=== PATIENT | female | born 1970 | race Caucasian/White ===

== ENCOUNTER 2022-08-02 09:52 | Emergency (ER) | payer MEDICAID ==
[~2022-08-02] VITALS: Ht 152.4 cm; Wt 54.0 kg
[~2022-08-02 09:52] MED LIST: CYCL-120 PO
[2022-08-02 10:28] LABS: BASOPHILS % (AUTO) 0.5 % (0-1); EOSINOPHILS # (AUTO) 0.1 X10'3 (0-0.9); EOSINOPHILS % (AUTO) 1.3 % (0-6); HEMOGLOBIN 15.6 g/dl (12.0-16.0); LYMPHOCYTES # (AUTO) 1.7 X10'3 (1.1-4.8); MEAN CORPUSCULAR HEMOGLOBIN 31.2 PG (27.0-31.0); MEAN CORPUSCULAR HGB CONC 33.9 g/dL (33.0-36.5); MEAN CORPUSCULAR VOLUME 92.1 FL (78-98); MEAN PLATELET VOLUME 7.7 FL (7.4-10.4); MONOCYTES # (AUTO) 0.4 X10'3 (0-0.9); MONOCYTES % (AUTO) 6.3 % (2-12); NEUTROPHILS # (AUTO) 4.1 X10'3 (1.8-7.7); NEUTROPHILS % (AUTO) 64.9 % (42-75); PLATELET COUNT 306 X10'3 (140-440); RED BLOOD COUNT 4.99 X10'6 (4.20-5.60); RED CELL DISTRIBUTION WIDTH 12.3 % (11.5-14.5); WHITE BLOOD COUNT 6.3 X10'3 (4.5-11.0)
[2022-08-02 10:39] LABS: ALANINE AMINOTRANSFERASE 26 U/L (12-78); ALBUMIN 4.5 G/DL (3.4-5.0); ALBUMIN/GLOBULIN RATIO 1.3 (1.1-1.5); ALKALINE PHOSPHATASE 115 IU/L (46-116); ANION GAP 6 (8-16); ASPARTATE AMINO TRANSFERASE 21 U/L (10-37); BILIRUBIN,TOTAL 0.7 MG/DL (0.1-1.0); BLOOD UREA NITROGEN 8 MG/DL (7-18); BUN/CREATININE RATIO 9.9 (6.6-38.0); CHLORIDE 102 MMOL/L (99-107); CREATININE 0.81 MG/DL (0.40-0.90); GLUCOSE 117 MG/DL (70-104); POTASSIUM 3.7 MMOL/L (3.5-5.1); SODIUM 139 MMOL/L (135-145); TOTAL CARBON DIOXIDE 31.2 MMOL/L (24-32); TOTAL PROTEIN 8.1 G/DL (6.4-8.2); eGFR 75 ML/MIN
[2022-08-02 10:52] LABS: CALCIUM 9.5 MG/DL (8.5-10.1)
[2022-08-02 10:53] LABS: LIPASE 104 U/L (73-393)
[2022-08-02] MEDS ORDERED: RABE20TA31 PO (12:24)
[2022-08-02] MEDS ORDERED: SUCR1TAB PO (12:24)
[2022-08-02 12:57] VITALS: BP 132/78
== END 2022-08-02 12:59 | disposition home or self-care (01) ==
LOC: ER 09:53
DX: R10.13 Epigastric pain (principal); R11.2 Nausea with vomiting, unspecified; F17.200 Nicotine dependence, unspecified, uncomplicated; Z98.51 Tubal ligation status; Z72.89 Other problems related to lifestyle; Z88.0 Allergy status to penicillin; Z88.2 Allergy status to sulfonamides; Z88.8 Allergy status to other drugs, medicaments and biological substances; Z79.899 Other long term (current) drug therapy
CPT/HCPCS: 36415; 74022; 76700; 80053; 83690; 85025; 93005; 99285

== ENCOUNTER 2022-12-26 12:18 | Emergency (ER) | payer MEDICAID ==
[~2022-12-26] VITALS: Ht 154.9 cm; Wt 60.0 kg
[~2022-12-26 12:18] MED LIST changes: +RABE20TA31 PO; +SUCR1TAB PO
[2022-12-26] MEDS ORDERED: meclizine 12.5mg tablet PO ONE (14:05)
[2022-12-26] MEDS ORDERED: diazepam 5mg tablet PO ONE (14:05)
[2022-12-26] MEDS ORDERED: MECL-159 PO (14:10)
[2022-12-26] MEDS ORDERED: DIAZ5TAB22 PO (14:10)
[2022-12-26 14:18] VITALS: BP 109/69
== END 2022-12-26 14:19 | disposition home or self-care (01) ==
LOC: ER 12:18
DX: R42 Dizziness and giddiness (principal); Z88.0 Allergy status to penicillin; Z88.2 Allergy status to sulfonamides; Z98.51 Tubal ligation status
CPT/HCPCS: 99283; J8597

== ENCOUNTER 2025-03-03 13:53 | Outpatient (CLI) | payer BC, OTHER ==
[~2025-03-03 13:53] MED LIST changes: +MECL-302 PO; -RABE20TA31 PO; +RABE20TA32 PO
--- NOTE | 2025-03-03 15:10 | RADIOLOGY REPORT ---
[facility] INDICATION: CERVICALGIA COMPARISON: None TECHNIQUE: 4 views of the cervical spine were obtained. FINDINGS: The cervical vertebral alignment is normal. The predental space is normal. The intervertebral disc spaces are well-maintained. No significant facet arthropathy is noted. No acute fracture, vertebral compression deformity or aggressive osseous lesions. The imaged lung apices are unremarkable. IMPRESSION: No acute fracture.
== END 2025-03-03 23:59 | disposition home or self-care (01) ==
LOC: RAD 13:53
PROVIDERS: ATTEND Family Medicine
DX: M54.2 Cervicalgia (principal)
CPT/HCPCS: 72050